=== PATIENT | male | born 1945 | race Caucasian/White ===

== ENCOUNTER → 2023-09-27 07:53 | Outpatient (BNVA) | payer MEDICARE, OTHER, SELFPAY | PROVIDERS: Family Provider Family Medicine; PCP Registered Nurse; Visit Provider Nurse Practitioner Family | DX: D48.5 Neoplasm of uncertain behavior of skin (principal); L57.0 Actinic keratosis; L57.8 Other skin changes due to chronic exposure to nonionizing radiation; D22.5 Melanocytic nevi of trunk; L21.8 Other seborrheic dermatitis; L81.4 Other melanin hyperpigmentation; L30.8 Other specified dermatitis; B35.1 Tinea unguium | CPT/HCPCS: 17000; 69100; 99204 ==